=== PATIENT | male | born 1960 | race Caucasian/White ===

== ENCOUNTER → 2018-10-09 | Outpatient (CLI) | payer MEDICARE ==
--- NOTE | 2018-10-10 13:41 | RAD ---
Three-view lumbar spine series Clinical indications: Low back pain FINDINGS: Transverse processes are intact. No compression fracture or discitis or osteolytic process or anterolisthesis is evident. There is degenerative endplate spurring throughout the lumbar spine. Mild degenerative disc space narrowing is seen at L2-3 and L3-4. IMPRESSION: Degenerative lumbar spondylosis. Electronically signed by: Parvez Carrillo MD (10/10/2018 1:37 PM) [facility]
== END | disposition home or self-care (01) ==
LOC: RAD 10:20
PROVIDERS: ATTEND Internal Medicine
DX: M47.896 Other spondylosis, lumbar region (principal); M48.061 Spinal stenosis, lumbar region without neurogenic claudication; M46.06 Spinal enthesopathy, lumbar region
CPT/HCPCS: 72100